=== PATIENT | male | born 1950 | race Caucasian/White ===

== ENCOUNTER → 2020-02-15 | Outpatient (CLI) | payer MEDICARE, OTHER ==
[~2020-02-15] MED LIST: IOHEXOL 240 MG/ML 50ML VIAL. ONE; IOHEXOL 240 MG/ML 50ML VIAL. PO ONE; IOHEXOL 300 MG/ML 75 ML VIAL. IV ONE
[2020-02-15 11:06] LABS: BASO % 0 % (0-3); EOS # 0.2 x10^3/uL (0.0-0.7); EOS % 2 % (0-3); HEMATOCRIT 45.2 % (39.0-53.0); HEMOGLOBIN 15.2 g/dL (13.0-17.5); LYMPH # 2.6 x10^3/uL (1.0-4.8); LYMPH % 27 % (24-48); MEAN CORPUSCULAR HEMOGLOBIN 32 pg (25-35); MEAN CORPUSCULAR HGB CONC 34 g/dL (31-37); MEAN CORPUSCULAR VOLUME 96 fL (79-100); MONO # 1.1 x10^3/uL (0.0-1.1); MONO % 11 % (0-9); NEUT % 60 % (31-73); PLATELET COUNT 165 x10^3/uL (140-400); RED BLOOD COUNT 4.73 x10^6/uL (4.30-5.70); WHITE BLOOD COUNT 9.9 x10^3/uL (4.0-11.0)
[2020-02-15 11:16] LABS: CALCIUM 9.3 mg/dL (8.5-10.1); GFR 74.1; POTASSIUM 4.1 mmol/L (3.5-5.1)
[2020-02-15 11:21] LABS: ALBUMIN 3.8 g/dL (3.4-5.0); TOTAL BILIRUBIN 1.9 mg/dL (0.2-1.0); TOTAL PROTEIN 7.8 g/dL (6.4-8.2)
--- NOTE | 2020-02-15 12:19 | RAD ---
CT scan of the abdomen and pelvis with contrast 02/15/2020 CLINICAL HISTORY: Low pelvic pain. TECHNIQUE: After the oral and intravenous administration of contrast, contiguous, 5 mm axial sections were obtained through the abdomen and pelvis. 75 cc of Omnipaque 300 were administered intravenously during this examination. One or more of the following individualized dose reduction techniques were utilized for this study: 1. Automated exposure control. 2. Adjustment of the mA and/or kV according to patient size. 3. Use of iterative reconstruction technique. FINDINGS: Images through the lung bases demonstrate minimal dependent subsegmental atelectasis bilaterally. The liver, spleen, pancreas, adrenal glands and left kidney are within normal limits. Rounded low-attenuation lesions are seen involving the right kidney which measure 5 mm to 3 cm in size. They likely represent cysts. No further imaging workup is recommended. Atherosclerotic calcification of the abdominal aorta is seen. The abdominal aorta tapers normally. Surgical clips are seen within the gallbladder fossa consistent with a cholecystectomy. No free fluid or free air is seen within the abdomen. There is no evidence of bowel obstruction. Multiple diverticula are seen throughout the sigmoid colon. A focal area of wall thickening is seen involving the mid sigmoid colon. Increased density is seen within the adjacent fat. These findings are consistent with diverticulitis. No abnormal fluid collection is seen to suggest evidence of an abscess. Images through the pelvis demonstrate the urinary bladder distended with urine. Calculations are seen within the prostate gland. Calcifications are seen within the pelvis consistent with phleboliths. No free fluid is seen. Degenerative changes are seen involving the lower thoracic and throughout the lumbar spine along with both hips. IMPRESSION: Findings consistent with sigmoid diverticulitis. Electronically signed by: Adolph Cooper MD (02/15/2020 12:17 PM) [id number]
== END ==
LOC: CT 10:29
PROVIDERS: ATTEND Family Medicine
DX: K57.32 Diverticulitis of large intestine without perforation or abscess without bleeding (principal); N32.89 Other specified disorders of bladder; N40.0 Benign prostatic hyperplasia without lower urinary tract symptoms; I87.8 Other specified disorders of veins; M47.816 Spondylosis without myelopathy or radiculopathy, lumbar region; M16.0 Bilateral primary osteoarthritis of hip
CPT/HCPCS: 36415; 74177; 80053; 83605; 85025; Q9966; Q9967

== ENCOUNTER → 2020-04-09 | Outpatient (CLI) | payer MEDICARE, OTHER ==
[~2020-04-09] MED LIST changes: +ASPI-630 PO; +CHOL2400 PO; +EVOL140P3 SQ; +EZET10TA20 PO; -IOHEXOL 240 MG/ML 50ML VIAL. ONE; -IOHEXOL 240 MG/ML 50ML VIAL. PO ONE; -IOHEXOL 300 MG/ML 75 ML VIAL. IV ONE; +LORA10CA PO; +LOSA50TA14 PO; +METO25TA2 PO; +NITR0.4T22 SL; +PRAS10TA9 PO; +[UNRECOGNIZED DRUG - CODE] PO
== END ==
LOC: LAB 11:30
PROVIDERS: ATTEND Nurse Anesthetist, Certified Registered
DX: Z01.812 Encounter for preprocedural laboratory examination (principal); Z86.010 Personal history of colon polyps; Z20.828 Contact with and (suspected) exposure to other viral communicable diseases
CPT/HCPCS: U0003

== ENCOUNTER → 2020-08-15 | Outpatient (CLI) | payer MEDICARE, OTHER | LOC: LAB 07:00 | PROVIDERS: ATTEND Nurse Anesthetist, Certified Registered | DX: Z01.812 Encounter for preprocedural laboratory examination (principal); K57.30 Diverticulosis of large intestine without perforation or abscess without bleeding; Z20.822 Contact with and (suspected) exposure to COVID-19 | CPT/HCPCS: U0003; U0005 ==

== ENCOUNTER → 2020-08-19 | Day surgery (SDC) | payer MEDICARE, OTHER ==
[~2020-08-19] MED LIST changes: +IPRATRPIUM/ALBUTEROL 0.5/2.5MG 3 ML NEBU. NEB PRN; +IV RINGERS SOLUTION,LACTATED 1,000 ML IV SCH; +LIDOCAINE 2% PF 5 ML VIAL. ONE; +MIDAZOLAM HCL PF 2 MG/2 ML VIAL. IV ONE; +ONDANSETRON PF 4 MG/2 ML VIAL. IV PRN; +PROPOFOL 10,000 MCG/ML (20ML) VIAL IV ONE
[2020-08-19 09:30] VITALS: BP 113/75
== END | disposition home or self-care (01) ==
LOC: SURG 07:38
PROVIDERS: ATTEND Internal Medicine Gastroenterology
DX: Z12.11 Encounter for screening for malignant neoplasm of colon (principal); K57.30 Diverticulosis of large intestine without perforation or abscess without bleeding; I10 Essential (primary) hypertension; M16.0 Bilateral primary osteoarthritis of hip; M47.816 Spondylosis without myelopathy or radiculopathy, lumbar region; E78.00 Pure hypercholesterolemia, unspecified; Z86.010 Personal history of colon polyps; Z80.0 Family history of malignant neoplasm of digestive organs; Z98.0 Intestinal bypass and anastomosis status; Z95.0 Presence of cardiac pacemaker; Z79.899 Other long term (current) drug therapy; Z88.0 Allergy status to penicillin; Z88.8 Allergy status to other drugs, medicaments and biological substances; Z79.82 Long term (current) use of aspirin; Z72.89 Other problems related to lifestyle
CPT/HCPCS: G0105; J2001; J2704; J7120; 45378

== ENCOUNTER → 2021-01-28 | Outpatient (CLI) | payer MEDICARE, OTHER ==
[2020-08-19 09:30] VITALS: BP 113/75
[~2021-01-28] MED LIST changes: -IPRATRPIUM/ALBUTEROL 0.5/2.5MG 3 ML NEBU. NEB PRN; -IV RINGERS SOLUTION,LACTATED 1,000 ML IV SCH; -LIDOCAINE 2% PF 5 ML VIAL. ONE; -MIDAZOLAM HCL PF 2 MG/2 ML VIAL. IV ONE; -ONDANSETRON PF 4 MG/2 ML VIAL. IV PRN; -PROPOFOL 10,000 MCG/ML (20ML) VIAL IV ONE
[2021-01-28 11:08] LABS: BASO % 0 % (0-3); EOS # 0.1 x10^3/uL (0.0-0.7); EOS % 1 % (0-3); HEMATOCRIT 43.2 % (39.0-53.0); HEMOGLOBIN 14.7 g/dL (13.0-17.5); LYMPH # 2.9 x10^3/uL (1.0-4.8); LYMPH % 30 % (24-48); MEAN CORPUSCULAR HEMOGLOBIN 33 pg (25-35); MEAN CORPUSCULAR HGB CONC 34 g/dL (31-37); MEAN CORPUSCULAR VOLUME 96 fL (79-100); MONO % 10 % (0-9); NEUT # 5.6 x10^3uL (1.8-7.7); NEUT % 58 % (31-73); PLATELET COUNT 174 x10^3/uL (140-400); RED CELL DISTRIBUTION WIDTH 13.2 % (11.5-14.5); WHITE BLOOD COUNT 9.7 x10^3/uL (4.0-11.0)
[2021-01-28 11:14] LABS: CALCIUM 9.2 mg/dL (8.5-10.1); CREATININE 0.8 mg/dL (0.7-1.3); GFR 95.6; POTASSIUM 4.2 mmol/L (3.5-5.1)
[2021-01-28 11:20] LABS: ALBUMIN 3.6 g/dL (3.4-5.0); ALBUMIN/GLOBULIN RATIO 0.9 (1.0-1.7); TOTAL BILIRUBIN 1.2 mg/dL (0.2-1.0); TOTAL PROTEIN 7.4 g/dL (6.4-8.2)
== END ==
LOC: LAB 10:33
PROVIDERS: ATTEND Family Medicine
DX: K62.5 Hemorrhage of anus and rectum (principal)
CPT/HCPCS: 36415; 80053; 85025; 85610

== ENCOUNTER 2021-02-23 13:21 | Emergency (ER) | payer MEDICARE, OTHER ==
[~2021-02-23] VITALS: Ht 175.3 cm; Wt 95.8 kg
[2021-02-23 13:30] VITALS: BP 154/79
[2021-02-23] MEDS ORDERED: DIPH,PERTUSS(ACELL),TET VAC/PF 0.5 ML SYRINGE. VAX IM ONE (13:45)
--- NOTE | 2021-02-23 15:18 | PHYS DOC ---
Past History Past Medical History: CAD, SC (KIMMY SUTTON) Past Surgical History: Cholecystectomy, Colectomy, Pacemaker, Other Additional Past Surgical Histo: CARDIAC STENTS X 5 (KIMMY SUTTON) Alcohol Use: Rarely (KIMMY SUTTON) General Adult EDM: Chief Complaint: LACERATION/AVULSION HPI: HPI: Patient is a 70 year old male who presents with lacerations to digits 2 and 3 of his left hand. Patient states that he was about to cut frozen sausage to make a breakfast sandwich, when the knife slipped. Patient denies any associated pain. Patient did report that he laid down in bed prior to coming to the emergency department, as he gets lightheaded at the site of blood. Patient has no lightheadedness in the department. Patient has no other complaints at this time. (KIMMY SUTTON) Review of Systems: Review of Systems: 12 systems reviewed. ROS negative except as mentioned in HPI. (KIMMY SUTTON) Current Medications: Current Meds: Current Medications Medications (Trade) Dose Ordered Sig/Mohan Start Time Stop Time Status Last Admin Dose Admin Diphtheria/ Pertussis/Tetanus Vacc (ADACEL TDap SYRINGE) 0.5 ml ONCE ONCE 02/23/21 13:45 02/23/21 13:46 DC 02/23/21 14:53 0.5 ML (KIMMY SUTTON) Allergies: Allergies: Allergies Coded Allergies Type Severity Reaction Last Updated Verified Penicillins Allergy Unknown 08/19/20 Yes simvastatin Allergy Unknown 08/19/20 Yes (KIMMY SUTTON) Physical Exam: PE: Constitutional: Well developed, well nourished, no acute distress, non-toxic appearance. Cardiovascular: Regular rate and rhythm. Lungs & Thorax: Bilateral breath sounds clear to auscultation. Skin: 2 cm laceration noted to the dorsolateral aspect of left second digit around the level of the DIP joint with proximal V shaped end, point 7 cm laceration noted to distal dorsolateral aspect of digit 3 that does not include the fingernail. Skin otherwise warm, dry, no erythema, no rash. Neurologic: Alert and oriented x4, motor function intact, sensory function intact, no focal deficits noted. (KIMMY SUTTON) Current Patient Data: Vital Signs: Vital Signs Date Time Temp Pulse Resp B/P (MAP) Pulse Ox O2 Delivery O2 Flow Rate FiO2 02/23/21 13:30 97.5 62 20 154/79 (104) 97 Room Air (KIMMY SUTTON) Heart Score: C/O Chest Pain: No (KIMMY SUTTON) Course & Med Decision Making: Course & Med Decision Making Pertinent Labs and Imaging studies reviewed. (See chart for details) Patient's lacerations have largely stopped bleeding upon arrival to the emergency department. Lacerations are superficial and thin, therefore not requiring sutures. Lacerations were closed with Dermabond. Patient given suture care instructions and instructions to return to the emergency department. Patient understands and is agreeable to discharge plan. (KIMMY SUTTON) Dragon Disclaimer: Dragon Disclaimer: This electronic medical record was generated, in whole or in part, using a voice recognition dictation system. (KIMMY SUTTON) Laceration Repair Lac Repair Indication: Lacerations to digits 2 and 3 of the left hand Procedure: The patient was placed in the appropriate position and anesthesia around the was unnecessary. The area was then cleansed with sterile saline and gauze. The laceration was closed with Dermabond. The wound area was then dressed with adhesive bandages. Total repaired wound length: 2.7 cm. Other Items: The patient tolerated the procedure very well. Complications: No complications. (KIMMY SUTTON) Attending Co-Sign The patient was seen and interviewed as well as examined at the bedside. The chart was reviewed. The case was discussed. Agree with the plan of care. (RAMSES ESPINOZA DO) Departure Departure: Impression: Primary Impression: Laceration of left index finger w/o foreign body w/o damage to nail Qualified Codes: S61.211A - Laceration without foreign body of left index finger without damage to nail, initial encounter Additional Impression: Laceration of left middle finger w/o foreign body w/o damage to nail Qualified Codes: S61.213A - Laceration without foreign body of left middle finger without damage to nail, initial encounter Disposition: HOME / SELF CARE / HOMELESS Condition: STABLE Referrals: CLEVELAND SCHNEIDER (PCP) Patient Instructions: Laceration Care, Adult, [id number] Additional Instructions: Your lacerations were closed today with Dermabond, which is a very strong skin glue. The Dermabond will come off on its own after 7 to 10 days. Please do not submerge your hand in water or leave it under running water for prolonged amount of time. Please return to the emergency department if you develop signs of infection, including fever, warmth or discharge from the wound. KIMMY SUTTON Feb 23, 2021 15:17 RAMSES ESPINOZA DO Feb 25, 2021 15:07
== END 2021-02-23 15:27 | disposition home or self-care (01) ==
LOC: ER 13:21
DX: S61.211A Laceration without foreign body of left index finger without damage to nail, initial encounter (principal); S61.213A Laceration without foreign body of left middle finger without damage to nail, initial encounter; I25.10 Atherosclerotic heart disease of native coronary artery without angina pectoris; I25.2 Old myocardial infarction; Z88.0 Allergy status to penicillin; Z88.8 Allergy status to other drugs, medicaments and biological substances; W26.0XXA Contact with knife, initial encounter; Y93.89 Activity, other specified; Y92.89 Other specified places as the place of occurrence of the external cause; Y99.8 Other external cause status
CPT/HCPCS: 12002; 90471; 90715; 99283